=== PATIENT | male | born 1975 | race Caucasian/White ===

== ENCOUNTER 2023-03-05 08:36 | Emergency (ER) | payer OTHER, SELFPAY ==
[2023-03-05 08:49] VITALS: BP 139/93; PULSE 60; RESP 16; TEMP 35.7; O2SAT 98
--- NOTE | 2023-03-05 09:28 | ED.URI ---
HPI - URI/Sore Throat General Chief Complaint: Upper Respiratory Infection Stated Complaint: Sore Throat/Sinus Time Seen by Provider: 03/05/23 08:41 Source: patient Mode of arrival: ambulatory Limitations: no limitations History of Present Illness HPI Narrative: 47-year-old male presents to [facility] with complaints of sore throat, congestion, runny nose, cough, sneezing and chest congestion for the past 2-3 days. Patient reports that numerous family members recently had similar symptoms but were not diagnosed with any illness. Patient has been taking [id number] TheraFlu and Tylenol with little relief. Patient denies recent travel. Patient denies fever, body aches, chills, nausea, vomiting, diarrhea, shortness of breath or wheezing. MD elicited complaint: cough, sore throat, rhinorrhea and nasal congestion Onset (ago): day(s) (3) Able to tolerate fluids by mouth: Yes Context: sick contacts Treatments prior to arrival: acetaminophen and cold medicine Related Data Home Medications Medication Instructions Recorded Confirmed atorvastatin 10 mg tablet 10 mg PO DAILY 03/05/23 03/05/23 emollient (Vanicream topical) 2 applic topical DAILY 03/05/23 03/05/23 lisinopril 30 mg tablet 30 mg PO DAILY 03/05/23 03/05/23 modafinil 200 mg tablet 200 mg PO DAILY 03/05/23 03/05/23 Allergies Allergy/AdvReac Type Severity Reaction Status Date / Time No Known Allergies Allergy Verified 03/05/23 09:03 Review of Systems Constitutional: Constitutional: Denies chills, Denies fatigue, Denies fever(s) and Denies weakness ENT: Denies dizziness, Denies epistaxis, Reports nasal congestion and Reports sore throat Respiratory: Respiratory: Reports cough, Denies dyspnea and Denies wheezing Gastrointestinal: Gastrointestinal: Denies abdominal pain, Denies diarrhea, Denies nausea and Denies vomiting Genitourinary: Genitourinary: Denies dysuria Musculoskeletal: Musculoskeletal: Denies arthralgias and Denies joint swelling Integumentary/Breasts: Skin/Breast: Denies rash Neurologic: Denies dizziness, Denies syncope and Denies headache(s) PMFSH Comments At time of signature, I agree with nursing past medical, surgical, social and family history. There is no relevant family history pertinent to the presenting complaint. Exam Const: General: healthy appearing and no acute distress Nutritional Appearance: well nourished Orientation/consciousness: patient oriented x3 Limitations: no limitations HENMT: Head: normal to inspection Ears: external ears normal, TM's normal bilaterally and EAC's normal Face/Nose/Sinus: Normal external nose present Face and sinus: normal facial exam Mouth: Yes moist mucous membranes Teeth and gingiva: dentition normal Throat: uvula midline Other: Mild erythema noted to oropharynx Eyes: Conjunctivae: conjunctivae normal Neck: Neck: normal visual inspection Resp: Effort & Inspection: normal respiratory effort and not labored Auscultation: clear to auscultation bilaterally, no crackles, no rales, no rhonchi and no wheezes Cardio: Rate: regular rate Rhythm: regular rhythm Heart sounds: no murmurs Skin: General skin exam: normal color Rashes: no rashes Neuro: General: patient oriented x3 Psych: Affect: normal affect Attitude: cooperative Course Course Level of Care: Express Care Visit Vital Signs Vital signs: Vital Signs Temperature 35.7 C L 03/05/23 08:49 Pulse Rate 60 03/05/23 08:49 Respiratory Rate 16 03/05/23 08:49 Blood Pressure 139/93 H 03/05/23 08:49 Pulse Oximetry 98 03/05/23 08:49 Oxygen Delivery Room Air 03/05/23 08:49 Temperature 35.7 C L 03/05/23 08:49 Pulse Rate 60 03/05/23 08:49 Respiratory Rate 16 03/05/23 08:49 Blood Pressure 139/93 H 03/05/23 08:49 Pulse Oximetry 98 03/05/23 08:49 Oxygen Delivery Room Air 03/05/23 08:49 MDM - URI/Sore Throat MDM Narrative Medical decision making narrative: Instructed patient that
== END 2023-03-05 09:35 | disposition home or self-care (01) ==
PROVIDERS: Emergency Provider Nurse Practitioner Family
DX: J06.9 Acute upper respiratory infection, unspecified (principal); Z20.822 Contact with and (suspected) exposure to COVID-19; E78.00 Pure hypercholesterolemia, unspecified; I10 Essential (primary) hypertension
CPT/HCPCS: 87081; 87880; 99203; G0463